=== PATIENT | female | born 1995 | race Caucasian/White ===

== ENCOUNTER 2025-04-05 13:42 | Emergency (ER) | payer SELFPAY ==
[2025-04-05 13:45] VITALS: BP 127/83; PULSE 83; RESP 16; TEMP 35.8; O2SAT 97; BMI 31.6
--- NOTE | 2025-04-05 15:19 | RAD_ITS ---
PROCEDURE: HIP, UNI W/ PELVIS 2-3 VIEWS 04/05/2025 REASON FOR EXAM: PAIN TECHNIQUE: HIP, UNI W/ PELVIS 2-3 VIEWS COMPARISON: None. FINDINGS: The bony pelvis is unremarkable. The SI joints and right hip appear unremarkable. There are no soft tissue abnormalities of the pelvis. AP and lateral views of the left hip demonstrate no evidence of fracture or dislocation. The left hip joint appears unremarkable. The periarticular soft tissues are normal. RAD/HIP, UNI W/ Pelvis 2-3 Views IMPRESSION: Normal pelvis and left hip. Reading Location: [id number]
[2025-04-05] MEDS: Ketorolac 30 MG/ML Syringe IM (15:37)
[2025-04-05 16:37] VITALS: PULSE 73; RESP 18; O2SAT 98
--- NOTE | 2025-04-05 16:56 | EDS_ITS ---
HPI History of Present Illness Chief Complaint: Lower Extremity Injury Narrative Narrative: Chief complaint and HPI: Left hip pain. 29-year-old female with past medical history of lumbar back pain requiring physical therapy presents for evaluation of left hip pain. Patient states approximately one week ago she woke up with left hip pain. She denies any injury or trauma. States she is also having some lumbar back pain. She denies numbness, weakness, urinary retention, stool or ur inary incontinence, saddle anesthesia, recent invasive manipulation of the spine, intravenous drug use, or fever. Denies any abdominal pain or dysuria. Triage note states she has a history of chronic hip pain, she denies this to me. Review of systems: See HPI Medications: As listed on the chart Allergies: As listed on the chart PFSH: Per chart Vital signs: As listed on the chart. Reviewed. Physical exam: Gen: A&O x3, NAD Head: Normocephalic, atraumatic Eyes: No sclera icterus, conjunctiva clear ENT: Moist mucous membranes Neck: Trachea midline, full range of motion CV: RRR, no murmurs, no peripheral edema Resp: Lungs CTA BL, no w/r/c GI: Abd soft, non-distended, non-tender, no r/r/g : No CVA tenderness Musc: Full ROM, no deformity, no midline spinal tenderness, no bony step-offs, patient has tenderness to palpation of the left lumbar paraspinal musculature- muscles are tense, no signs of infection or trauma, patient has tenderness to palpation of the left gluteal muscles especially in the piriformis, hip with full range of motion without any significant tenderness, sensation intact, DP/PT pulses +2 bilaterally, strength is 5 out of 5 Skin: Warm, dry Neuro: Alert, oriented, grossly intact, sensation intact Psych: Cooperative, appropriate [facility] and [facility] Medications ?Medication ?Instructions ?Recorded ?Last Taken ?Type NK 04/05/25 Unknown History cyclobenzaprine 5 mg tablet 5 mg PO TID PRN muscle spa sm 3 04/05/25 Unknown Rx days #9 tabs Allergy/AdvReac Type Severity Reaction Status Date / Time Opioids - Morphine Analogues Allergy Mild Hives Verified 04/05/25 13:44 cephalexin (From Keflex) Allergy Unknown NEEDS Verified 04/05/25 13:44 FOLLOW-UP Social History Smoking Status: Never smoker EXAM Physical Exam Const Vital Signs: 04/05/25 13:45 04/05/25 16:37 Temperature 96.4 F L Temperature Source Temporal Pulse Rate 83 73 Respiratory Rate 16 18 Blood Pressure 127/83 H Blood Pressure Mean 97 Pulse Ox 97 98 Oxygen Delivery Method Room Air Room Air MDM MDM MDM Narrative Medical decision making narrative: 29-year-old female with past medical history of lumbar back pain requiring physical therapy presents for evaluation of left hip pain. Patient states approximately one week ago she woke up with left hip pain. She denies any injury or trauma. States she is also having some lumbar back pain. She denies numbness, weakness, urinary retention, stool or urinary incontinence, saddle anesthesia, recent invasive manipulation of the spine, intravenous drug use, or fever. Denies any abdominal pain or dysuria. See physical exam findings. There is nothing to suggest any infectious etiology. There is no neurologic findings to suggest an acute cauda equina syndrome or any acute radiculopathy. I suspect patient's pain is likely secondary to myofascial spasm however cannot rule out occult fracture although low suspicion given no trauma. Patient symptoms will be treated with IM Toradol. She is driving today therefore no muscle relaxer will be given here in the emergency department however will be giving a prescription for home. X-ray of the left hip obtained. X-ray of the left hip and pelvis were personally reviewed and interpreted by me, ED physician. No fracture or dislocation. Radiology in agreement. Patient states her pain has improved with IM Toradol. Recommended follow-up with PCP. If pain does not improve may benefit from physical therapy. Recommended ibuprofen and Tylenol as needed for pain as well as muscle relaxers. Recommended rest, heating pad, IcyHot. Return precautions explained. Patient confirmed understand the plan. Patient stable for discharge home. Impression: 1. Lumbar back spasm 2. Left hip pain Radiography Diagnostic Testing: Clinical Impression(s) from Imaging Studies Hip/Pelvis X-Ray 04/05/25 15:19 IMPRESSION: Normal pelvis and left hip. Reading Location: [facility] Discharge Plan Triage Chief Complaint: Lower Extremity Injury ED Provider: Logan Murcia Dx/Rx/DC Orders Clinical Impression: Acute pain of left hip, Back spasm Instructions: ED Muscle Spasm Prescriptions: New cyclobenzaprine 5 mg tablet 5 mg PO TID PRN (Reason: muscle spasm) 3 Days Qty: 9 0RF No Action NK Primary Care Provider: Care Physician,No Primary Referrals: Blayne Marr MD [Med Staff - Active Staff] - 3-5 Days Activity Restrictions/Additional Instructions: Follow-up with your primary care physician. If you do not have a primary care physician follow-up with the one provided above. Return back to the ED if symptoms change or worsen. You received Toradol here in the emergency department, no ibuprofen for 8 hours. Okay for ibuprofen and Tylenol as needed for pain. Do not drive or operate heavy machinery when taking muscle relaxers as they can increase lightheadedness, falls, dizziness. Recommend heating pad and IcyHot as needed. Print Language: Prydeinig Disposition Disposition: Home, Self Care Discharge Date/Time: 04/05/25 16:38
== END 2025-04-05 16:38 | disposition home or self-care (01) ==
PROVIDERS: Emergency Provider Surgery; Visit Provider Surgery
DX: M25.552 Pain in left hip (principal); M54.50 Low back pain, unspecified; M62.830 Muscle spasm of back
CPT/HCPCS: 73502; 96372; 99282